=== PATIENT | female | born 1965 | race African-American/Black ===

== ENCOUNTER 2017-08-11 07:46 | Emergency (ER) | payer MEDICAID ==
[2017-08-11] MEDS ORDERED: KETOROLAC 30 MG INJ IM (09:17)
[2017-08-11] MEDS ORDERED: DIPHENHYDRAMINE 50 MG INJ IM (09:30)
[2017-08-11] MEDS: ACETAMINOPHEN 500 MG TAB PO ×2 (10:51→17:06)
[2017-08-11] MEDS: DIPHENHYDRAMINE 50 MG CAP PO (10:53)
[2017-08-11 11:51] LABS: ADD MAN DIFF? NO
[2017-08-11 11:53] LABS: BASOPHILS % 0.8 % (0.0-2.0); EOSINOPHILS # 0.1 10^3/ul (0.0-0.5); EOSINOPHILS % 1.3 % (0.0-7.0); HEMATOCRIT 38.1 % (37.0-47.0); HEMOGLOBIN 11.1 g/dl (12.0-16.0); LYMPHOCYTES # 1.7 10^3/ul (0.8-2.9); LYMPHOCYTES % 32.1 % (15.0-51.0); MEAN CORPUSCULAR HEMOGLOBIN 19.3 pg (29.0-33.0); MEAN CORPUSCULAR HGB CONC 29.1 g/dl (32.0-37.0); MEAN CORPUSCULAR VOLUME 66.1 fl (82.0-101.0); MEAN PLATELET VOLUME 8.4 fl (7.4-10.4); MONOCYTE # 0.5 10^3/ul (0.3-0.9); MONOCYTES % 9.4 % (0.0-11.0); NEUTROPHIL # 2.9 10^3/ul (1.6-7.5); NEUTROPHILS % 56.2 % (39.0-77.0); PLATELET COUNT 582 10^3/UL (140-415); RED BLOOD COUNT 5.76 10^6/ul (4.20-5.40); RED CELL DISTRIBUTION WIDTH 20.3 % (11.5-14.5)
[2017-08-11 11:53] LABS: WHITE BLOOD COUNT 5.2 10^3/ul (4.8-10.8)
[2017-08-11 12:14] LABS: ANION GAP 20 (8-16); BLOOD UREA NITROGEN 10 mg/dl (7-20); CALCIUM 9.3 mg/dl (8.4-10.2); CARBON DIOXIDE 22 mmol/L (21-31); CHLORIDE 105 mmol/L (97-110); CHOLESTEROL 236 mg/dl (100-200); CREATININE 0.68 mg/dl (0.44-1.00); GLUCOSE 85 mg/dl (70-220); HDL CHOLESTEROL 78 mg/dl (37-92); INR 0.94; LDL CHOLESTEROL,CALCULATED 139 mg/dl; PARTIAL THROMBOPLASTIN TIME 30.9 Sec (25.0-35.0); POTASSIUM 4.1 mmol/L (3.5-5.1); PROTIME 12.7 Sec (11.9-14.9); SODIUM 143 mmol/L (135-144); TRIGLYCERIDES 94 mg/dl (0-149)
[2017-08-12 11:04] LABS: ADD UMIC NO; UR ASCORBIC ACID NEGATIVE (NEGATIVE); UR BILIRUBIN (Dip) NEGATIVE (NEGATIVE); UR BLOOD (Dip) NEGATIVE (NEGATIVE); UR CLARITY CLEAR (CLEAR); UR COLOR YELLOW (YELLOW); UR GLUCOSE (Dip) NEGATIVE (NEGATIVE); UR KETONES (Dip) NEGATIVE (NEGATIVE); UR LEUKOCYTE ESTERASE (Dip) NEGATIVE Leu/ul (NEGATIVE); UR NITRITE (Dip) NEGATIVE (NEGATIVE); UR SPECIFIC GRAVITY (Dip) 1.021 (1.003-1.030); UR TOTAL PROTEIN (Dip) NEGATIVE (NEGATIVE); UR UROBILINOGEN (Dip) NEGATIVE (NEGATIVE)
== END 2017-08-11 17:34 | disposition home or self-care (01) ==
LOC: FTE 07:46
DX: R51 Headache (principal); M62.830 Muscle spasm of back; Z91.040 Latex allergy status
CPT/HCPCS: 36415; 70450; 70551; 72072; 72100; 80048; 80061; 81003; 84703; 85025; 85610; 85730; 99285-25

== ENCOUNTER 2017-09-05 17:04 | Emergency (ER) | payer MEDICAID ==
[2017-09-05] MEDS: HYDROCODONE/APAP (5/325) TAB PO (20:28)
== END 2017-09-05 21:11 | disposition home or self-care (01) ==
LOC: FTE 17:04
DX: G44.209 Tension-type headache, unspecified, not intractable (principal); I10 Essential (primary) hypertension
CPT/HCPCS: 70450; 72125; 99285-25